=== PATIENT | female | born 1980 | race American Indian/Alaskan Native ===

== ENCOUNTER 2022-12-03 08:56 | Outpatient (CLI) | payer OTHER, SELFPAY ==
--- NOTE | ~2022-12-03 | XR_ITS ---
EXAMINATION: XR chest 2V DATE: 12/03/2022 09:17 INDICATION: Positive QuantiFeron test for tuberculosis . TECHNIQUE: Frontal and lateral views of the chest were obtained. COMPARISON: None. FINDINGS: There is no pneumonia, pleural effusion, or pneumothorax. The heart size is normal. IMPRESSION: 1. Normal lungs. Reviewed, dictated and finalized at location A. IMPRESSION: 1. Normal lungs.
== END 2022-12-03 08:57 | disposition home or self-care (01) ==
PROVIDERS: PCP Nurse Practitioner Psychiatric/Mental Health; Visit Provider Nurse Practitioner Psychiatric/Mental Health
DX: Z22.7 Latent tuberculosis (principal)
CPT/HCPCS: 71046